=== PATIENT | female | born 1970 | race Two or more races ===

== ENCOUNTER 2017-11-26 11:49 | Outpatient (CLI) | payer OTHER | END 2017-11-26 12:03 | disposition home or self-care (01) | LOC: RAD 501 11:49 | DX: J45.41 Moderate persistent asthma with (acute) exacerbation (principal); M54.5 Low back pain ==

== ENCOUNTER 2017-12-01 11:55 | Outpatient (CLI) | payer OTHER | END 2017-12-01 17:00 | disposition home or self-care (01) | LOC: MRI 11:55 | DX: M23.231 Derangement of other medial meniscus due to old tear or injury, right knee (principal) | CPT/HCPCS: 73721 ==

== ENCOUNTER 2018-02-03 08:03 | Outpatient (CLI) | payer OTHER | END 2018-02-03 08:11 | disposition home or self-care (01) | LOC: MRI 08:03 | DX: M54.2 Cervicalgia (principal); M54.12 Radiculopathy, cervical region | CPT/HCPCS: 72141 ==